=== PATIENT | female | born 1945 | race Caucasian/White ===

== ENCOUNTER 2025-08-26 15:39 | Outpatient (CLI) | payer MEDICARE ==
[2025-08-26 16:04] LABS: MEAN PLATELET VOLUME 8.1 FL (7.4-10.4); RED CELL DISTRIBUTION WIDTH 14.5 % (11.5-14.5)
[2025-08-26 16:15] LABS: CREATININE 1.14 MG/DL (0.40-0.90); TOTAL CARBON DIOXIDE 34.2 MMOL/L (24-32); eGFR 46 ML/MIN
== END 2025-08-26 23:59 | disposition home or self-care (01) ==
LOC: LAB SPEC 15:39
PROVIDERS: ATTEND Nurse Practitioner
DX: E21.3 Hyperparathyroidism, unspecified (principal); I69.354 Hemiplegia and hemiparesis following cerebral infarction affecting left non-dominant side; E03.8 Other specified hypothyroidism
CPT/HCPCS: 36415; 80053; 83970; 85025